=== PATIENT | female | born 1955 | race Caucasian/White ===

== ENCOUNTER 2021-12-29 22:30 | Emergency (ER) | payer MEDICARE, OTHER, SELFPAY ==
[2021-12-29 22:32] VITALS: BP 143/83; PULSE 79; RESP 14; TEMP 37; O2SAT 98; BMI 25.7
--- NOTE | 2021-12-29 22:36 | RAD_ITS ---
STUDY: X-RAY - RIGHT WRIST REASON FOR EXAM: Female, 66 years old. pain TECHNIQUE: 3 view(s) of the wrist were obtained. COMPARISON: None. FINDINGS: Normal visualized distal radius and ulna. Normal radiocarpal articulation. Normal distal radioulnar articulation. Mild sclerosis of the lunate, degenerative appearing. Normal carpal articulations. There is degenerative arthrosis of the carpometacarpal articulation of the thumb. Normal second through fifth carpometacarpal articulations. Normal visualized metacarpal bones. The soft tissue structures are unremarkable. RAD/Wrist min 3 Views IMPRESSION: No demonstrated fracture or malalignment. Electronically Signed: Luis Antonio Dominguez MD (Brooks) at 22:53 EDT Reading Location ID and State: [facility] / [place] , Service support ,
--- NOTE | 2021-12-29 22:39 | EDS_ITS ---
HPI History of Present Illness HPI Narrative: Patient presents with right wrist injury that occurred after a fall tonight. Patient states she slipped and fell and landed on her right wrist. Patient states this occurred approximate 2 hours prior to arrival. Patient describes her pain as dull and aching. Patient states it is worse with movement. Patient denies any paresthesias or weakness. Patient denies any head injury or loss of consciousness. Patient denies any other injuries. Chief Complaint: Upper Extremity Injury Informant: patient Onset/Context/Timing Onset: Today and Hours (2) Timing: Continuous Quality of Pain: Dull and Aching Location: Right wrist Worsened by: Movement Relieved by: Rest Associated Symptoms Associated Symptoms: Negative for Parasthesia, Weakness and Loss of Funtion PFSH PFSH Medical History no medical history Home Medications alendronate 70 mg PO DAILY 12/29/21 [History Last Taken Unknown] Allergy/AdvReac Type Severity Reaction Status Date / Time No Known Allergies Allergy Verified 12/29/21 22:31 Surgical History (Updated 12/29/21 @ 23:[address] William Ayala DO) Hx of tonsillectomy Social History Smoking Status: Never smoker ROS ROS ED Constitutional Constitutional ED: Denies chills or fever(s) Eyes Eyes: Denies blurry vision or change in vision ENT ENT ED: Denies rhinorrhea or sore throat Cardiovascular Cardiovascular: Denies chest pain or palpitations Respiratory/Chest Respiratory/Chest: Denies cough or dyspnea Gastrointestinal Gastrointestinal: Denies nausea or vomiting Genitourinary Genitourinary ED: Denies dysuria or hematuria Musculoskeletal Musculoskeletal: Denies back pain or neck pain Integumentary Denies abscess or rash Neurologic Neurologic: Denies headache(s) or weakness Allergic/Immunologic Allergic/Immunologic ED: Denies mouth swelling or urticaria EXAM Physical Exam Const Vital Signs: 12/29/21 22:32 Temperature 98.6 F Temperature Source Temporal Pulse Rate 79 Respiratory Rate 14 Blood Pressure 143/83 H Blood Pressure Mean 103 Pulse Ox 98 Oxygen Delivery Method Room Air Positive well nourished and well developed General Appearance ED: well developed and NAD HEENT Reports moist mucous membranes Neck full ROM and supple Extremity Extremity Narrative: There is tenderness over the right distal radius. It is mainly on the volar aspect. There is no tenderness over the anatomic snuffbox. Range of motion was limited in all motions of the right wrist secondary to pain. There is no obvious deformity noted. There is some mild edema. There is no ecchymosis. Radial pulses are equal bilaterally. Sensation was intact to light touch in the radial, median, and ulnar areas. Strength is 5/5 in the radial, median, and ulnar areas. Capillary refill was less than 2 seconds in all digits. Neuro oriented x3, CN's II-XII intact bilaterally, moves all extremities, no focal motor deficits and no sensory deficits noted Sensorium / Orientation: alert Psych mental status grossly normal MDM MDM MDM Narrative Medical decision making narrative: X-rays of the right wrist were obtained. There are 3 views. On my interpretation, there is no acute fracture. There is no dislocation. There is no soft tissue swelling. Radiologist also interpreted the x-rays and agrees. Patient was given a Velcro wrist splint. Patient was instructed to ice and elevate the right wrist. Patient was instructed to follow-up with her primary care physician in 7 to 10 days. Patient understood and was agreeable with the plan. All questions were answered. Discharge Plan Triage Chief Complaint: Upper Extremity Injury ED Provider: William Ayala Dx/Rx/DC Orders Clinical Impression: Right wrist sprain Instructions: ED Wrist Sprain Prescriptions: No Action alendronate 70 mg tablet 70 mg PO DAILY RF: 0 Primary Care Provider: Huma Trinh NP Referrals: Huma Trinh NP, [facility]NAL [employer] [Primary Care Provider] - 5-7 Days Disposition Disposition: Home, Self Care
[2021-12-29] MEDS: HYDROcodone Bitartrate/Apap 5/325 Tablet PO (23:15)
== END 2021-12-29 23:18 | disposition home or self-care (01) ==
PROVIDERS: Emergency Provider Emergency Medicine; PCP Clinical Nurse Specialist; Visit Provider Emergency Medicine
DX: S63.91XA Sprain of unspecified part of right wrist and hand, initial encounter (principal); W01.0XXA Fall on same level from slipping, tripping and stumbling without subsequent striking against object, initial encounter
CPT/HCPCS: 73110; 99283

== ENCOUNTER 2025-01-04 09:15 | Emergency (ER) | payer MEDICARE, OTHER, SELFPAY ==
[2025-01-04 09:16] VITALS: BP 130/101; PULSE 69; RESP 16; TEMP 36.8; O2SAT 100; BMI 27.0
--- NOTE | 2025-01-04 09:53 | CT_ITS ---
EXAM: CT Abdomen and Pelvis With Intravenous Contrast CLINICAL INDICATION: LEFT LOWER QUADRANT ABDOMINAL PAIN TECHNIQUE: Axial computed tomography images of the abdomen and pelvis with intravenous contrast. This CT exam was performed using one or more of the following dose reduction techniques: automated exposure control, adjustment of the mA and/or kV according to patient size, and/or use of iterative reconstruction technique. COMPARISON: No relevant prior studies available. FINDINGS: LUNG BASES: Unremarkable. No mass. No consolidation. MEDIASTINUM: Small esophageal hiatal hernia. ABDOMEN: LIVER: Fatty infiltration of the liver. Hepatic cysts. GALLBLADDER AND BILE DUCTS: Unremarkable. No calcified stones. No ductal dilation. PANCREAS: Unremarkable. No mass. No ductal dilation. SPLEEN: Unremarkable. No splenomegaly. ADRENALS: Unremarkable. No mass. KIDNEYS AND URETERS: Left nephrolithiasis without hydronephrosis. Left renal cysts. STOMACH AND BOWEL: Fecal retention in the colon consistent with constipation. Colonic diverticulosis without acute diverticulitis. No obstruction. PELVIS: APPENDIX: No findings to suggest acute appendicitis. BLADDER: Unremarkable. No mass. REPRODUCTIVE: Unremarkable as visualized. ABDOMEN and PELVIS: INTRAPERITONEAL SPACE: Unremarkable. No free air. No significant fluid collection. BONES/JOINTS: No acute fracture. No dislocation. SOFT TISSUES: Umbilical hernia containing fat. VASCULATURE: Unremarkable. No abdominal aortic aneurysm. LYMPH NODES: Unremarkable. No enlarged lymph nodes. CT/Abdomen/Pelvis W IV Cont ONLY IMPRESSION: 1. Small esophageal hiatal hernia. 2. Fecal retention in the colon consistent with constipation. 3. Umbilical hernia containing fat. 4. Left nephrolithiasis without hydronephrosis. 5. Left renal cysts. 6. Colonic diverticulosis without acute diverticulitis. Reading Location: [id number]
--- NOTE | 2025-01-04 09:54 | ED.VIS.GI ---
HPI HPI - GI History of Present Illness Chief Complaint: Abd Pain Narrative Narrative: 69-year-old female who denies significant past medical history presents with left lower quadrant abdominal pain which began at around 2:00 this morning, approximately 8 hours ago. She states she got up in the middle the night and had dull, aching pain more the left lower quadrant. She felt like she had to have a bowel movement. She went back to bed, and now the pain has worsened and is in the left upper quadrant as well. She was able to have a bowel movement today which was normal. She denies any dysuria or hematuria, no fevers or chills but she is nauseated but has not vomited. No exacerbating or alleviating factors. At times the pain did become sharp and stabbing. It is concentrated mainly in the left lower quadrant however. She denies any previous abdominal surgeries. PFSH PFSH Home Medications ?Medication ?Instructions ?Recorded ?Last Taken ?Type calcium carbonate 260 mg PO DAILY 01/04/25 01/03/25 History cholecalciferol (vitamin D3) 1 cap PO QODAY 01/04/25 01/03/25 History multivitamin (Daily Multi-Vitamin 1 tab PO DAILY 01/04/25 01/03/25 History tablet) Allergy/AdvReac Type Severity Reaction Status Date / Time No Known Allergies Allergy Verified 12/29/21 22:31 Surgical History Hx of tonsillectomy Social History Smoking Status: Never smoker ROS ROS ED ROS Narrative Review of systems positive for left lower quadrant and now left upper quadrant abdominal pain. Described as dull and achy and sometimes sharp and stabbing. No dysuria or hematuria. No fevers or chills. No diarrhea or problems with bowel movements. Positive nausea but no vomiting. Denies other symptoms. No exacerbating or alleviating factors. EXAM Physical Exam Narrative Exam Narrative: Afebrile. Vital signs noted. Nontoxic-appearing. Cardiovascular examination feels a regular rate and rhythm, lungs are clear to auscultation bilaterally. The abdomen is soft with mild tenderness palpation in the left lower quadrant greater than the left upper quadrant. No rebound or guarding. Positive bowel sounds. No tenderness in epigastrium. Neurological examination nonfocal, nonlateralizing. Awake, alert, interactive. Const Vital Signs: 01/04/25 09:16 Temperature 98.3 F Temperature Source Oral Pulse Rate 69 Respiratory Rate 16 Blood Pressure 130/101 H Blood Pressure Mean 110 Pulse Ox 100 MDM MDM MDM Narrative Medical decision making narrative: The differential diagnosis includes but not limited to diverticulitis versus colitis versus pyelonephritis versus ureterolithiasis. Patient administered morphine and ondansetron and normal saline for analgesia. Comprehensive workup was pursued. I do feel CT imaging is indicated. I have a lower suspicion for obstruction as the patient has not had prior abdominal surgeries. I reviewed her laboratory work and she has normal white count of 5.8 with hemoglobin normal at 13.0, platelet count normal at 238. Electrolyte panel is significant for BUN of 22 which I think is nonspecific and creatinine normal at 1.12. Glucose elevated 138 with a normal anion gap of 12. Urinalysis is negative for infection with negative nitrites and 0-5 WBCs. I do not feel antibiotics are indicated. I reviewed the radiology report of the CT of the abdomen pelvis with IV contrast and there is no acute process. She has diverticulosis without evidence of diverticulitis. Upon repeat examination at approximately 1300, she is resting comfortably and her pain is improved. Her abdomen remains soft and is nontender. While I feel she probably has more of a nonspecific abdominal pain from this morning I feel she can be discharged safely home with follow-up. I offered her antinausea medication but she declined. Return instructions to the emergency department were reviewed. Patient agreeable with discharge. Disposition is discharged home in stable condition. History & Record Review Discussion w/independent historian: Patient Additional record(s) reviewed:: Prior ED visit (Noncontributory to current chief complaint, was seen for wrist injury on 1 other visit) Lab Data Attestation: I reviewed the patient's lab results. Labs: Laboratory Results - last 24 hr 01/04/25 01/04/25 09:34 11:35 WBC 5.8 RBC 4.26 Hgb 13.0 Hct 38.0 MCV 89.2 MCH 30.5 MCHC 34.2 RDW Std Deviation 42.4 RDW Coeff of Veronica 13.0 Plt Count 238 MPV 11.2 Immature Gran % (Auto) 0.300 Neut % (Auto) 60.7 Lymph % (Auto) 24.4 [place] % (Auto) 9.3 Eos % (Auto) 4.3 Baso % (Auto) 1.0 Absolute Neuts (auto) 3.5 Absolute Lymphs (auto) 1.42 Nucleated RBC % 0 Sodium 141 Potassium 4.0 Chloride 106 Carbon Dioxide 23.4 Anion Gap 12 BUN 22 H Creatinine 1.12 Estim Creat Clear Calc 43.00 L Est GFR (MDRD) Non-Af 53 L BUN/Creatinine Ratio 20.0 Glucose 138 H Calcium 9.8 Total Bilirubin 0.27 AST 26 ALT 18 Alkaline Phosphatase 52 Total Protein 7.0 Albumin 4.2 Globulin 2.8 Albumin/Globulin Ratio 1.5 Urine Color Straw Urine Clarity Clear Urine pH 7.0 Ur Specific [place] 1.005 Urine Protein Negative Urine Glucose (UA) Normal Urine Ketones Negative Urine Occult Blood 50 H Urine Nitrite Negative Urine Bilirubin Negative Urine Urobilinogen Normal Ur Leukocyte Esterase Negative Urine RBC 0-5 SEEN Urine WBC 0-5 SEEN Ur Squamous Epith Cells 0 SEEN Urine Bacteria 0 SEEN Urine Mucus 0 SEEN Radiography Diagnostic Testing: Clinical Impression(s) from Imaging Studies Abdomen/Pelvis CT 01/04/25 09:53 IMPRESSION: 1. Small esophageal hiatal hernia. 2. Fecal retention in the colon consistent with constipation. 3. Umbilical hernia containing fat. 4. Left nephrolithiasis without hydronephrosis. 5. Left renal cysts. 6. Colonic diverticulosis without acute diverticulitis. [facility] Chief Complaint: Abd Pain ED Provider: James Her Dx/Rx/DC Orders Clinical Impression: Abdominal pain, Diverticulosis Instructions: ED Abdominal Pain Unkn Cause Fem Prescriptions: No Action multivitamin [Daily Multi-Vitamin] Tablet 1 tab PO DAILY calcium carbonate 260 mg calcium (650 mg) tablet,chewable 260 mg PO DAILY cholecalciferol (vitamin D3) 1 cap PO QODAY Primary Care Provider: Yoselin Erwin Referrals: Yoselin Erwin MD [Primary Care Provider] - Activity Restrictions/Additional Instructions: Return to the emergency department with fever, increased pain, new or worsening symptoms. Follow-up with your primary care provider otherwise. Print Language: Maori Disposition Disposition: Home, Self Care
[2025-01-04] MEDS: Morphine 4 MG/ML Syringe IV (10:01)
[2025-01-04] MEDS: 0.9% Normal Saline (1000mL) 1,000 ML 999 ML IV (10:01)
[2025-01-04] MEDS: Ondansetron 4 MG/2 ML Vial IV (10:01)
[2025-01-04 10:02] LABS: Absolute Lymphocyte Count 1.42 X10^3/uL (0.83-4.51); Absolute Neutrophil Count 3.5 X10^3/uL (2.0-7.7); Basophil# 0.06 X10^3/uL; Eosinophil# 0.25 X10^3/uL; Eosinophils% 4.3 % (0-5); Lymphocyte # 1.42 X10^3/ul (0.83-4.51); Lymphocyte % 24.4 % (19-41); Mean Corp Hgb Conc 34.2 g/dL (32-36); Mean Corpuscular Hgb 30.5 pg (27.0-32.0); Mean Corpuscular Volume 89.2 fL (81-99); Mean Platelet Vol. 11.2 fl (6.2-12.0); Monocyte# 0.54 X10^3/uL; Monocyte% 9.3 % (0-10); NRBC Flagged by Analyzer 0 % (0-5); Neutrophil # 3.52 X10^3/uL (2.7-7.7); Neutrophil % 60.7 % (47-70); Platelet Count 238 K/mm3 (150-450); RBC Distribution Width SD 42.4 fl (35.1-43.9); Red Blood Count 4.26 M/mm3 (4.2-5.4); White Blood Count 5.8 K/mm3 (4.4-11.0)
[2025-01-04 10:23] LABS: ALB/GLOB Ratio 1.5 RATIO (0.9-2.4); AST(SGOT) 26 U/L (<=31); Alanine Aminotransfer ALT/SGPT 18 U/L (<=34); Albumin, Serum 4.2 g/dL (3.4-4.8); Alkaline Phosphatase 52 U/L (35-104); Anion Gap 12 (5-15); BUN 22 mg/dL (4-19); Calcium,Total 9.8 mg/dL (7.6-11.0); Carbon Dioxide 23.4 mmol/L (21.0-32.0); Chloride 106 mmol/L (98-108); Creatinine, Serum 1.12 mg/dL (0.70-1.20); EST Glomerular Filtration Rate 53 (>60); Globulin 2.8 g/dL (2.2-4.2); Glucose 138 mg/dL (70-99); Sodium Level 141 mmol/L (133-145); Total Bilirubin 0.27 mg/dL (0.00-1.30)
[2025-01-04 11:15] VITALS: BP 120/78; PULSE 82; RESP 18; O2SAT 98
[2025-01-04 11:42] LABS: Bacteria 0 SEEN /hpf (None Seen); Mucous, Urine 0 SEEN /hpf (<or=2+); Squamous Epithelial Cells - UA 0 SEEN /hpf (5-10)
[2025-01-04 11:49] LABS: Color, Urine Straw (Yellow); Glucose, Dipstick Normal (Normal); Ketone-Dipstick Negative (Negative); Leukocyte Esterase-Dipstick Negative /ul (Negative); Nitrite-Dipstick Negative (Negative); Occult Blood-Urine 50 /ul (Negative); Protein-Dipstick Negative (Negative); Specific Gravity, Urine 1.005 (1.002-1.030); Urine Bilirubin Dipstick Negative (Negative); Urine Clarity Clear (Clear); Urine Urobilinogen Normal (Normal)
[2025-01-04 12:29] LABS: Red Blood Cells-Urine 0-5 SEEN /hpf (0-5); White Blood Cells 0-5 SEEN /hpf (0-5)
[2025-01-04 13:00] VITALS: BP 128/86; PULSE 85; RESP 18; O2SAT 99
[2025-01-04 13:16] VITALS: BP 128/86; PULSE 85; RESP 18; TEMP 36.8; O2SAT 99
== END 2025-01-04 13:17 | disposition home or self-care (01) ==
PROVIDERS: Emergency Provider Emergency Medicine; PCP Internal Medicine; Visit Provider Emergency Medicine
DX: R10.32 Left lower quadrant pain (principal); K57.30 Diverticulosis of large intestine without perforation or abscess without bleeding; R10.12 Left upper quadrant pain
CPT/HCPCS: 74177; 80053; 81001; 85025; 96361; 96374; 96375; 99283; Q9967; A4216; J2405

== ENCOUNTER 2025-01-05 08:38 | Day surgery (SDC) | payer MEDICARE, OTHER, SELFPAY ==
[2025-01-05] VITALS (10 sets, daily range): BP systolic 138–163; BP diastolic 79–106; PULSE 72–111; RESP 14–18; TEMP 36.1–36.5; O2SAT 93–100; BMI 27.1
--- NOTE | 2025-01-05 08:53 | CT_ITS ---
EXAM: CT Abdomen and Pelvis With Intravenous Contrast CLINICAL INDICATION: ABDOMINAL PAIN TECHNIQUE: Axial computed tomography images of the abdomen and pelvis with intravenous contrast. This CT exam was performed using one or more of the following dose reduction techniques: automated exposure control, adjustment of the mA and/or kV according to patient size, and/or use of iterative reconstruction technique. COMPARISON: CT Abdomen Pelvis dated 01/04/2025 FINDINGS: LUNG BASES: Unremarkable. No mass. No consolidation. MEDIASTINUM: Small esophageal hiatal hernia. ABDOMEN: LIVER: Hepatomegaly with fatty infiltration. GALLBLADDER AND BILE DUCTS: Unremarkable. No calcified stones. No ductal dilation. PANCREAS: Unremarkable. No mass. No ductal dilation. SPLEEN: Unremarkable. No splenomegaly. ADRENALS: Unremarkable. No mass. KIDNEYS AND URETERS: 10 mm obstructing calculus of the proximal left ureter resulting in moderate hydronephrosis. This appears to progressed since the prior exam. Left renal cysts. STOMACH AND BOWEL: Fecal retention in the colon consistent with constipation. Colonic diverticulosis without acute diverticulitis. No obstruction. PELVIS: APPENDIX: No findings to suggest acute appendicitis. BLADDER: Unremarkable. No mass. REPRODUCTIVE: Unremarkable as visualized. ABDOMEN and PELVIS: INTRAPERITONEAL SPACE: Unremarkable. No free air. No significant fluid collection. BONES/JOINTS: No acute fracture. No dislocation. SOFT TISSUES: Umbilical hernia containing fat. VASCULATURE: Unremarkable. No abdominal aortic aneurysm. LYMPH NODES: Unremarkable. No enlarged lymph nodes. CT/Abdomen/Pelvis W IV Cont ONLY IMPRESSION: 1. 10 mm obstructing calculus of the proximal left ureter resulting in moderat e hydronephrosis. This appears to progressed since the prior exam. 2. Small esophageal hiatal hernia. 3. Fecal retention in the colon consistent with constipation. 4. Hepatomegaly with fatty infiltration. 5. Umbilical hernia containing fat. 6. Colonic diverticulosis without acute diverticulitis. Reading Location: [id number]
--- NOTE | 2025-01-05 08:54 | ED.VIS.GI ---
HPI HPI - GI History of Present Illness Chief Complaint: Abd Pain Detail of Chief Complaint: Abdominal pain Informant: patient Narrative Narrative: Patient presents with abdominal pain x 2 days. She states that she was seen in the emergency department yesterday and had blood work as well as urinalysis and a CAT scan that were unremarkable. She received morphine and Zofran which seemed to help her pain at that time. Patient states that she has had pain since that time and this morning has dry heaves. Pain seems to be worse mostly to the left side of the abdomen and radiating to her back. She denies blood in her stool or black tarry stool. She denies diarrhea. She denies fever. She denies urinary symptoms. PFSH PFSH Home Medications ?Medication ?Instructions ?Recorded ?Last Taken ?Type calcium carbonate 260 mg PO DAILY 01/04/25 01/03/25 History cholecalciferol (vitamin D3) 1 cap PO QODAY 01/04/25 01/03/25 History multivitamin (Daily Multi-Vitamin 1 tab PO DAILY 01/04/25 01/03/25 History tablet) Allergy/AdvReac Type Severity Reaction Status Date / Time No Known Allergies Allergy Verified 12/29/21 22:31 Surgical History Hx of tonsillectomy Social History Smoking Status: Never smoker ROS ROS ED Review of Systems ROS Unobtainable: other Constitutional Constitutional ED: Reports lethargy; Denies chills, fever(s), sweats or weight loss Eyes Eyes: Denies blurry vision, change in vision or diplopia ENT ENT ED: Denies rhinorrhea or sore throat Cardiovascular Cardiovascular: Denies chest pain, orthopnea or racing heartbeat Respiratory/Chest Respiratory/Chest: Denies cough, dyspnea, dyspnea on exertion, orthopnea or sputum Gastrointestinal Gastrointestinal: Reports abdominal pain, nausea and vomiting; Denies diarrhea Genitourinary Genitourinary ED: Denies dysuria, hematuria or urinary frequency Musculoskeletal Musculoskeletal: Denies arthralgias, back pain, myalgias or neck pain Integumentary Denies abscess, Abrasions or rash Neurologic Neurologic: Denies headache(s) or weakness Psychiatric Psychiatric: Denies anxiety, depression or suicidal thoughts Endocrine Endocrinology: Denies polydipsia, polyphagia or polyuria Hematologic/Lymphatic Hematologic/Lymphatic: Denies easy bleeding, easy bruising or lymphadenopathy Allergic/Immunologic Allergic/Immunologic ED: Denies mouth swelling, tongue swelling or urticaria EXAM Physical Exam Const Vital Signs: 01/05/25 08:39 01/05/25 11:21 Temperature 96.9 F L Temperature Source Temporal Pulse Rate 111 H 78 Respiratory Rate 18 18 Blood Pressure 161/83 H Blood Pressure Mean 109 Pulse Ox 95 98 Oxygen Delivery Method Room Air Positive well nourished and well developed General Appearance ED: well developed and NAD HEENT Reports TM's clear and moist mucous membranes normocephalic and atraumatic; Negative for trauma or tenderness Tympanic Membrane ED: Yes TM's clear Eyes PERRL and EOMs intact bilaterally General Eye ED: Negative for pale conjunctiva or scleral icterus Neck no lymphadenopathy, supple and no JVD General: Negative for tenderness Chest Wall inspection of chest normal and palpation of chest normal Chest: Negative for tenderness Resp normal respiratory effort and clear to auscultation bilaterally Effort and Inspection: Negative for respiratory distress or pain with movement Auscultation: Negative for rhonchi, wheezes or diminished lung sounds Cardio regular rate, regular rhythm, S1 normal heart sound, S2 normal heart sound and no murmurs Peripheral Pulses: pulses 2+ throughout GI normal to inspection, nondistended, normoactive bowel sounds, soft to palpation, non-distended and no masses GI Narrative: Tenderness palpation over the epigastric region as well as the left upper quadrant left lower quadrant with some guarding. There is no rebound, rigidity, or peritoneal signs. No mass palpated. Back/Spine no CVA tenderness and no thoracic nor lumbar tenderness Extremity normal to inspection General Extremety ED: Negative for edema General Extremity: Negative for edema Neuro oriented x3, CN's II-XII intact bilaterally, no sensory deficits noted and gait normal Sensorium / Orientation: awake, alert, oriented to person, oriented to place and oriented to time Motor Exam: strength 5/5 throughout and strength abnormal Psych mental status grossly normal Skin no rashes or lesions noted and no wounds MDM MDM MDM Narrative Medical decision making narrative: Patient with 2-day history of ongoing abdominal pain. She has been vomiting this morning. IV line established. She was medicated with morphine and Zofran show good pain relief with that. CBC with differential obtained showed a normal white count 9.7 with hemoglobin 13.3 and platelet count of 233. Chemistries unremarkable. BUN 17 and creatinine 1.49. LFTs unremarkable and lipase was normal at 56. Urinalysis showed 10-25 RBCs without signs of infection. CT scan of the abdomen pelvis with IV contrast showed a 10 mm left proximal ureter stone with hydroureter and hydronephrosis. We did not have urology on-call therefore I discussed case with general surgeon on-call who called the urologist Dr. Monge who is the doctor of record for patient's . Urologist was gracious enough to accept the case and take patient to operating room for treatment of her large proximal ureteral stone. Patient will be kept NPO. Her last meal was yesterday. Lab Data Attestation: I reviewed the patient's lab results. Labs: Laboratory Results - last 24 hr 01/05/25 01/05/25 09:10 11:00 WBC 9.7 RBC 4.43 Hgb 13.3 Hct 39.1 MCV 88.3 MCH 30.0 MCHC 34.0 RDW Std Deviation 42.5 RDW Coeff of Veronica 13.1 Plt Count 233 MPV 11.2 Immature Gran % (Auto) 0.400 Neut % (Auto) 81.0 H Lymph % (Auto) 11.8 L [place] % (Auto) 5.6 Eos % (Auto) 0.7 Baso % (Auto) 0.5 Absolute Neuts (auto) 7.9 H Absolute Lymphs (auto) 1.14 Nucleated RBC % 0 Sodium 143 Potassium 3.9 Chloride 107 Carbon Dioxide 21.3 Anion Gap 14 BUN 17 Creatinine 1.49 H Estim Creat Clear Calc 32.42 L Est GFR (MDRD) Non-Af 37 L BUN/Creatinine Ratio 11.5 Glucose 120 H Lactic Acid 2.3 H* Calcium 10.3 Total Bilirubin 0.40 AST 28 ALT 19 Alkaline Phosphatase 57 Total Protein 7.4 Albumin 4.3 Globulin 3.1 Albumin/Globulin Ratio 1.4 Lipase 56 Urine Color Yellow Urine Clarity Cloudy Urine pH 8.0 Ur Specific [place] 1.015 Urine Protein 30 H Urine Glucose (UA) Normal Urine Ketones 5 H Urine Occult Blood 50 H Urine Nitrite Negative Urine Bilirubin Negative Urine Urobilinogen Normal Ur Leukocyte Esterase Negative Urine RBC 10-25 SEEN Urine WBC 0-5 SEEN Ur Squamous Epith Cells 0-5 SEEN Amorphous Sediment 2+ PHOS Urine Bacteria 0 SEEN Urine Mucus 0 SEEN Radiography Diagnostic Testing: Clinical Impression(s) from Imaging Studies Abdomen/Pelvis CT 01/05/25 08:53 IMPRESSION: 1. 10 mm obstructing calculus of the proximal left ureter resulting in moderate hydronephrosis. This appears to progressed since the prior exam. 2. Small esophageal hiatal hernia. 3. Fecal retention in the colon consistent with constipation. 4. Hepatomegaly with fatty infiltration. 5. Umbilical hernia containing fat. 6. Colonic diverticulosis without acute diverticulitis. Reading Location: [id number] Discharge Plan Dx/Rx/DC Orders Clinical Impression: Ureterolithiasis, Flank pain, Vomiting Disposition Disposition: Acute Care [facility]
[2025-01-05] MEDS: Ondansetron 4 MG/2 ML Vial IV (09:11)
[2025-01-05] MEDS: 0.9% Normal Saline (1000mL) 1,000 ML 125 ML IV (09:11)
[2025-01-05] MEDS: Morphine 4 MG/ML Syringe IV (09:11)
[2025-01-05 09:23] LABS: Absolute Lymphocyte Count 1.14 X10^3/uL (0.83-4.51); Absolute Neutrophil Count 7.9 X10^3/uL (2.0-7.7); Basophil# 0.05 X10^3/uL; Basophil% 0.5 % (0-1); Eosinophil# 0.07 X10^3/uL; Eosinophils% 0.7 % (0-5); Hematocrit 39.1 % (37-47); Hemoglobin 13.3 g/dL (12.0-15.0); Lymphocyte # 1.14 X10^3/ul (0.83-4.51); Lymphocyte % 11.8 % (19-41); Mean Corpuscular Volume 88.3 fL (81-99); Mean Platelet Vol. 11.2 fl (6.2-12.0); Monocyte# 0.54 X10^3/uL; Monocyte% 5.6 % (0-10); NRBC Flagged by Analyzer 0 % (0-5); Neutrophil # 7.85 X10^3/uL (2.7-7.7); Platelet Count 233 K/mm3 (150-450); RBC Distribution Width CV 13.1 % (11.6-14.6); RBC Distribution Width SD 42.5 fl (35.1-43.9); Red Blood Count 4.43 M/mm3 (4.2-5.4); White Blood Count 9.7 K/mm3 (4.4-11.0)
[2025-01-05 09:52] LABS: ALB/GLOB Ratio 1.4 RATIO (0.9-2.4); AST(SGOT) 28 U/L (<=31); Alanine Aminotransfer ALT/SGPT 19 U/L (<=34); Albumin, Serum 4.3 g/dL (3.4-4.8); Alkaline Phosphatase 57 U/L (35-104); Anion Gap 14 (5-15); BUN 17 mg/dL (4-19); BUN/Creat Ratio 11.5 RATIO (10-20); Calcium,Total 10.3 mg/dL (7.6-11.0); Carbon Dioxide 21.3 mmol/L (21.0-32.0); Chloride 107 mmol/L (98-108); Creatinine, Serum 1.49 mg/dL (0.70-1.20); EST Glomerular Filtration Rate 37 (>60); Estimated Creatinine Clearance 32.42 ml/min (50-250); Globulin 3.1 g/dL (2.2-4.2); Glucose 120 mg/dL (70-99); Lipase 56 U/L (13-75); Potassium 3.9 mmol/L (3.3-5.1); Protein, Total 7.4 g/dL (5.9-8.4); Sodium Level 143 mmol/L (133-145)
[2025-01-05 09:57] LABS: Lactic Acid 2.3 mmol/L (0.0-2.0)
[2025-01-05 11:10] LABS: Bacteria 0 SEEN /hpf (None Seen); Mucous, Urine 0 SEEN /hpf (<or=2+)
[2025-01-05 11:20] LABS: Color, Urine Yellow (Yellow); Glucose, Dipstick Normal (Normal); Ketone-Dipstick 5 mg/dl (Negative); Leukocyte Esterase-Dipstick Negative /ul (Negative); Nitrite-Dipstick Negative (Negative); Occult Blood-Urine 50 /ul (Negative); Protein-Dipstick 30 mg/dl (Negative); Specific Gravity, Urine 1.015 (1.002-1.030); Urine Bilirubin Dipstick Negative (Negative); Urine Clarity Cloudy (Clear); Urine Urobilinogen Normal (Normal)
[2025-01-05 11:42] LABS: Red Blood Cells-Urine 10-25 SEEN /hpf (0-5); White Blood Cells 0-5 SEEN /hpf (0-5)
[2025-01-05 11:43] LABS: Amorphous Sediment 2+ PHOS; Squamous Epithelial Cells - UA 0-5 SEEN /hpf (5-10)
--- NOTE | 2025-01-05 12:18 | PCM.CONS.U ---
Assessment & Plan Assessment/Plan (1) Abdominal pain: (2) Left renal stone: PLAN: npo, surgery to to laser stone and stent. team called made aware anesthesia called as well HPI Consult Data Date of Consult: 01/05/25 HPI Narrative Reason for Consultation: stone left ureter HPI Narrative: MICHAEL SINCLAIR, is a 69 F who presents w stone in the left proximsl ureter , nausea and vomitin, plan to take to surgery today to laser stone and stent. pt npo. PFSH Home Medications ?Medication ?Instructions ?Recorded ?Last Taken ?Type calcium carbonate 260 mg PO DAILY 01/04/25 01/03/25 History cholecalciferol (vitamin D3) 1 cap PO QODAY 01/04/25 01/03/25 History multivitamin (Daily Multi-Vitamin 1 tab PO DAILY 01/04/25 01/03/25 History tablet) Allergy/AdvReac Type Severity Reaction Status Date / Time No Known Allergies Allergy Verified 12/29/21 22:31 Surgical History Hx of tonsillectomy Social History Smoking Status: Never smoker ROS Constitutional Constitutional: Denies chills, fever(s) or malaise Eyes Eyes: Denies blurry vision or change in vision ENT HEENT: Reports none Cardiovascular Cardiovascular: Denies chest pain or palpitations Respiratory/Chest Respiratory/Chest: Denies cough or shortness of breath with exertion Gastrointestinal Gastrointestinal: Denies abdominal pain, constipation or diarrhea Musculoskeletal Musculoskeletal: Denies back pain, joint stiffness or joint swelling Integumentary Integumentary: Denies dry skin, jaundice, lesions or rash Neurologic Neurologic: Denies confusion, syncope or weakness Psychiatric Psychiatric: Reports none; Denies anxiety or depression Endocrine Endocrinology: Denies excessive sweating, fatigue or flushing Hematologic/Lymphatic Hematologic/Lymphatic: Denies anemia, easy bleeding or easy bruising Lab / Micro Data 01/05/25 09:10 01/05/25 09:10 Labs: Laboratory Results - last 24 hr 01/05/25 09:10: WBC 9.7, RBC 4.43, Hgb 13.3, Hct 39.1, MCV 88.3, MCH 30.0, MCHC 34.0, RDW Std Deviation 42.5, RDW Coeff of Veronica 13.1, Plt Count 233, MPV 11.2, Immature Gran % (Auto) 0.400, Neut % (Auto) 81.0 H, Lymph % (Auto) 11.8 L, [place] % (Auto) 5.6, Eos % (Auto) 0.7, Baso % (Auto) 0.5, Absolute Neuts (auto) 7.9 H, Absolute Lymphs (auto) 1.14, Nucleated RBC % 0, Sodium 143, Potassium 3.9, Chloride 107, Carbon Dioxide 21.3, Anion Gap 14, BUN 17, Creatinine 1.49 H, Estim Creat Clear Calc 32.42 L, Est GFR (MDRD) Non-Af 37 L, BUN/Creatinine Ratio 11.5, Glucose 120 H, Lactic Acid 2.3 H*, Calcium 10.3, Total Bilirubin 0.40, AST 28, ALT 19, Alkaline Phosphatase 57, Total Protein 7.4, Albumin 4.3, Globulin 3.1, Albumin/Globulin Ratio 1.4, Lipase 56 01/05/25 11:00: Urine Color Yellow, Urine Clarity Cloudy, Urine pH 8.0, Ur Specific [place] 1.015, Urine Protein 30 H, Urine Glucose (UA) Normal, Urine Ketones 5 H, Urine Occult Blood 50 H, Urine Nitrite Negative, Urine Bilirubin Negative, Urine Urobilinogen Normal, Ur Leukocyte Esterase Negative, Urine RBC 10-25 SEEN, Urine WBC 0-5 SEEN, Ur Squamous Epith Cells 0-5 SEEN, Amorphous Sediment 2+ PHOS, Urine Bacteria 0 SEEN, Urine Mucus 0 SEEN Imaging Radiology Impression Abdomen/Pelvis CT 01/05/25 08:53 IMPRESSION: 1. 10 mm obstructing calculus of the proximal left ureter resulting in moderate hydronephrosis. This appears to progressed since the prior exam. 2. Small esophageal hiatal hernia. 3. Fecal retention in the colon consistent with constipation. 4. Hepatomegaly with fatty infiltration. 5. Umbilical hernia containing fat. 6. Colonic diverticulosis without acute diverticulitis. Reading Location: [facility]
[2025-01-05 13:19] LABS: Reflex Lactate? Y
--- NOTE | 2025-01-05 13:30 | PRE.ANES_ITS ---
ASA Classification* ASA Classification ASA Classification: 2 and E Assessment & Plan Anesthesia* Anesthesia Assessment Anesthesia Assessment: Discussed sedation and/or anesthesia options, risks, benefits, and alternatives with patient/parents/legal guardian/POA. Questions invited. The patient/parents/legal guardian/POA seems to understand and agrees to proceed with anesthesia plan. Reviewed the physical assessment, medical history, allergy history and patient home medications list prior to surgery/procedure/anesthetic and documented any changes. Performed airway and anesthesia risk assessments. Anesthesia Type Anesthesia Type: General and MAC Anesthesia Focused Assessment* Temperature: 96.9 F Pulse Rate: 78 Blood Pressure: 161/83 Respiratory Rate: 18 Pulse Ox: 98 Airway Assessment Mouth opens: >3 cm Mallampati Score: II Focused Labs Anesthesia Preop lab: CBC WBC 9.7 K/mm3 (4.4-11.0) 01/05/25 09:10 01/05/25 RBC 4.43 M/mm3 (4.2-5.4) 01/05/25 09:10 01/05/25 Hgb 13.3 g/dL (12.0-15.0) 01/05/25 09:10 01/05/25 Hct 39.1 % (37-47) 01/05/25 09:10 01/05/25 Plt Count 233 K/mm3 (150-450) 01/05/25 09:10 01/05/25 CHEMISTRY Potassium 3.9 mmol/L (3.3-5.1) 01/05/25 09:10 01/05/25 Sodium 143 mmol/L (133-145) 01/05/25 09:10 01/05/25 BUN 17 mg/dL (4-19) 01/05/25 09:10 01/05/25 Creatinine 1.49 mg/dL (0.70-1.20) H 01/05/25 09:10 Glucose 120 mg/dL (70-99) H 01/05/25 09:10 01/05/25 COAG Pre-Assessment Diagnosis/Proposed Procedure Planned Operative Procedure(s): cysto stent laser? 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 When Was Last Pacemaker Check QUESTION #4 FULL TEXT: You/Your Family Experience fever (hyperthermia) with Anesthesia Last Oral Intake Last Oral intake: Last Oral Intake NPO since Meds taken in AM with sips of water? Meds patient instructed to take am of surgery PONV PONV - fiber optic central office installer: PONV - fiber optic central office installer Female HX of Motion Sickness HX of N/V After Surgery Non-Smoker Duration of Surgery greater than 60 minutes Number of Risk Factors PONV Score Height & Weight Height & Weight: Anesthesia: Height & Weight Height 5 ft 3 in 01/05/25 08:39 Weight: 69.672 kg 01/05/25 08:39 Body Mass Index (BMI) 27.1 01/05/25 08:39 Respiratory Assessment Respiratory Assessment - fiber optic central office installer: Respiratory Tract Infection Hx - fiber optic central office installer Hx Respiratory Tract Infection STOP Sleep Apnea STOP Sleep Apnea - fiber optic central office installer: STOP Sleep Apnea - fiber optic central office installer Hx Hypertension Hx Sleep Apnea CPAP BIPAP Do you snore loudly (louder than talking or can be heard Do you often feel tired/ fatigued/ sleepy during daytime? Has anyone observed you stop breathing during sleep? STOP Results QUESTION #5 FULL TEXT : Do you snore loudly (louder than talking or can be heard through closed doors)? Tobacco Use History Tobacco Use History - fiber optic central office installer: Tobacco Use History - fiber optic central office installer Tobacco Use Smoking Status Never smoker 01/05/25 09:12 Hx Tobacco Use Years Smoking Packs Smoked per Day Smoking Cessation Date was within the last 15 years Hx Smoking Cessation Date Hx Smoking Cessation Counseling Hematologic Medial History Hematologic Hx - fiber optic central office installer: Hematologic Medical Hx - litigation assistant Hx of Blood Transfusion Hx of Transfusion in last 3 Months Date of Last Transfusion (if within last 3 months) Ever experience any problems with transfusion(s)? Specify any problems Hx of Preganancy in last 3 Months Nurse Filling Out Transfusion & Questions: Date: Time: Patient unable to answer at this time (ie. confused, unrespo /Reproduction History /Reproductive History - fiber optic central office installer: /Reproductive Hx- fiber optic central office installer Hx Now Gestational Age (in weeks): EDC: Hx Hx Para Hx Section SAB Active Medications Active Medications: Current Medications Generic Name Dose Route Start Last Admin Trade Name Fritzq PRN Reason Stop Dose Admin Sodium Chloride 1,000 mls @ 125 mls/hr 01/05/25 08:55 01/05/25 09:11 IV 125 mls/hr .Q8H SAMIA Administration PFSH Home Medications ?Medication ?Instructions ?Recorded ?Last Taken ?Type calcium carbonate 260 mg PO DAILY 01/04/25 History cholecalciferol (vitamin D3) 1 cap PO QODAY 01/04/25 0 01/03/25 History multivitamin (Daily Multi-Vitamin 1 tab PO DAILY 01/0401/03/25 History tablet) Allergy/AdvReac Type Severity Reaction Status Date / Time No Known Allergies Allergy Verified 12/29/21 22:31 Surgical History Hx of tonsillectomy Social History Smoking Status: Never smoker Review of Systems (Anesthesia) ROS Narrative System reviewed and no additional complaints, except as documented.
--- NOTE | 2025-01-05 13:46 | HP.PCM_ITS ---
HPI - General General Date of Service: 01/05/25 HPI Narrative MICHAEL SINCLAIR, is a 69 F who presents with an obstructing stone in the left proximal ureter and severe pain nausea vomiting she comes back for the second time to the emergency room plan to take her to surgery to laser the stone and probably place a stent in the left side PFS Home Medications ?Medication ?Instructions ?Recorded ?Last Taken ?Type calcium carbonate 260 mg PO DAILY 01/04/25 History cholecalciferol (vitamin D3) 1 cap PO QODAY 01/04/25 0 01/03/25 History multivitamin (Daily Multi-Vitamin 1 tab PO DAILY 01/0401/03/25 History tablet) Allergy/AdvReac Type Severity Reaction Status Date / Time No Known Allergies Allergy Verified 12/29/21 22:31 Surgical History Hx of tonsillectomy Social History Smoking Status: Never smoker ROS Constitutional Constitutional: Denies chills, fever(s) or malaise Eyes Eyes: Denies blurry vision or change in vision ENT HEENT: Reports none Cardiovascular Cardiovascular: Denies chest pain or palpitations Respiratory/Chest Respiratory/Chest: Denies cough or shortness of breath with exertion Gastrointestinal Gastrointestinal: Denies abdominal pain, constipation or diarrhea Musculoskeletal Musculoskeletal: Denies back pain, joint stiffness or joint swelling Integumentary Integumentary: Denies dry skin, jaundice, lesions or rash Neurologic Neurologic: Denies confusion, syncope or weakness Psychiatric Psychiatric: Reports none; Denies anxiety or depression Endocrine Endocrinology: Denies excessive sweating, fatigue or flushing Hematologic/Lymphatic Hematologic/Lymphatic: Denies anemia, easy bleeding or easy bruising Vital Signs Vital Signs Vital Signs: 01/05/25 08:39 01/05/25 11:21 01/05/25 13:30 Temperature 96.9 F L 96.9 F L Temperature Source Temporal Pulse Rate 111 H 78 78 Respiratory Rate 18 Blood Pressure 161/83 H 161/83 H Blood Pressure Mean 109 Pulse Ox 95 98 98 Oxygen Delivery Method Room Air Weight Weight: 69.672 kg Body Mass Index (BMI) 27.1 Results Lab / Micro Data 01/05/25 09:10 01/05/25 09:10 Labs: Laboratory Results - last 24 hr 01/05/25 09:10: WBC 9.7, RBC 4.43, Hgb 13.3, Hct 39.1, MCV 88.3, MCH 30.0, MCHC 34.0, RDW Std Deviation 42.5, RDW Coeff of [place]onica 13.1, Plt Count 233, MPV 11.2, Immature Gran % (Auto) 0.400, Neut % (Auto) 81.0 H, Lymph % (Auto) 11.8 L, [place] % (Auto) 5.6, Eos % (Auto) 0.7, Baso % (Auto) 0.5, Absolute Neuts (auto) 7.9 H, Absolute Lymphs (auto) 1.14, Nucleated RBC % 0, Sodium 143, Potassium 3.9, Chloride 107, Carbon Dioxide 21.3, Anion Gap 14, BUN 17, Creatinine 1.49 H, E stim Creat Clear Calc 32.42 L, Est GFR (MDRD) Non-Af 37 L, BUN/Creatinine Ratio 11.5, Glucose 120 H, Lactic Acid 2.3 H*, Calcium 10.3, Total Bilirubin 0.40, AST 28, ALT 19, Alkaline Phosphatase 57, Total Protein 7.4, Albumin 4.3, Globulin 3.1, Albumin/Globulin Ratio 1.4, Lipase 56 01/05/25 11:00: Urine Color Yellow, Urine Clarity Cloudy, Urine pH 8.0, Ur Specific [place] 1.015, Urine Protein 30 H, Urine Glucose (UA) Normal, Urine Ketones 5 H, Urine Occult Blood 50 H, Urine Nitrite Negative, Urine Bilirubin Negative, Urine Urobilinogen Normal, Ur Leukocyte Esterase Negative, Urine RBC 10-25 SEEN, Urine WBC 0-5 SEEN, Ur Squamous Epith Cells 0-5 SEEN, Amorphous Sediment 2+ PHOS, Urine Bacteria 0 SEEN, Urine Mucus 0 SEEN Imaging Radiology Impression Abdomen/Pelvis CT 01/05/25 08:53 IMPRESSION: 1. 10 mm obstructing calculus of the proximal left ureter resulting in moderate hydronephrosis. This appears to progressed since the prior exam. 2. Small esophageal hiatal hernia. 3. Fecal retention in the colon consistent with constipation. 4. Hepatomegaly with fatty infiltration. 5. Umbilical hernia containing fat. 6. Colonic diverticulosis without acute diverticulitis. Reading Location: [facility] Assessment & Plan Assessment/Plan (1) Flank pain: (2) Ureterolithiasis: PLAN: Plan to proceed with cystoscopy, left ureteroscopy laser lithotripsy of stone and stent placement. Patient understands no guarantees that we will get the stone today and she may just get a stent.
--- NOTE | 2025-01-05 13:50 | PCM.DC ---
Discharge Instructions Diet Discharge Diet: No restrictions DC O2, CPAP, BIPAP needs Home O2 Discharge instructions: No Dressing / Incision Discharge Activity: Return to Normal Activity and May Not Drive (while taking narcotic pain medications.) Dressing / Incision Call your doctor if you observe: Fever of 101 or Higher Follow Up Care Please Follow Up With: Hosea Monge MD When: Call [phone] for an appointment Test Results: Test results from this visit will be discussed in further detail at your follow-up appointment, if applicable. Discharge Plan Admission Primary Reason for Your Visit: laser stone, left Attending Provider: Hosea Monge Primary Care Provider: Yoselin Erwin Instructions Print Language: Citizen Of [place] Discharge Orders/Prescriptions Prescriptions: New ibuprofen 600 mg tablet 600 mg PO Q6H PRN (Reason: pain) Qty: 20 0RF acetaminophen [Tylenol Extra Strength] 500 mg tablet 500 mg PO Q4H PRN (Reason: pain) Qty: 20 0RF phenazopyridine [Pyridium] 100 mg tablet 100 mg PO TID Qty: 20 0RF ciprofloxacin HCl [Cipro] 500 mg tablet 500 mg PO BID Qty: 6 0RF Continued multivitamin [Daily Multi-Vitamin] Tablet 1 tab PO DAILY calcium carbonate 260 mg calcium (650 mg) tablet,chewable 260 mg PO DAILY cholecalciferol (vitamin D3) 1 cap PO QODAY Patient Comments: PT DOESNT KNOW STRENGTH Referrals / Follow Up: Hosea Monge MD [Med Staff - Active Staff] - Yoselin Erwin MD [Primary Care Provider] - Disposition Disposition (needs filled in before D/C Order can be placed): Home, Self Care
--- NOTE | 2025-01-05 14:43 | PCM.OPRPT ---
Operative Report (Standard) Operative Information Date of Procedure: 01/05/25 Pre-Operative Diagnosis: Obstructing left proximal ureteral calculus impacted Post-Operative Diagnosis: The same Surgery/Procedure Performed: Cystoscopy left ureteroscopy laser lithotripsy of stone and left stent placement television cable installer: No Type of Anesthesia: General RN Documented Start/Stop Times: Operation Date: 01/05/25 14:10 Case Time Anesthesia Start 01/05/25 13:49 Into Room 01/05/25 13:49 Procedure Start 01/05/25 13:59 Procedure Start Time: 13:59 Procedure Stop Time: 14:43 Select all DRAINS/GRAFTS/IMPLANTS that apply: Drains Drain details: stent 6 fr x 26 cm Estimated Blood Loss: Minimal Specimen collected: No Description of surgery: Indication 69-year-old female presents with obstructing stone in the proximal left ureter she was admitted and today reticular to ureteroscopy laser of the stone and stent placement explained to the patient no guarantees ability get the stone laser today she might just get a stent talk about the risk of bleeding and infection. Patient was taken back to the operating room after smooth induction of anesthesia she was placed in dorsolithotomy position went into the bladder with a 7 [place] flexible ureteroscope was able to identify the left ureteral orifice with assistance of a Glidewire I then cannulated the left ureteral orifice and then was able to go into the ureter atraumatically worked my way all the way up the ureter and then encountered a very large 1 cm fragment of stone stuck in a torturous proximal ureter. I then started using laser lithotripsy without 150 ?m laser fiber, energy settings was 1 J and 2 Hz, worked very slowly to release the stone from the ureter the stone was quite impacted in the ureter and had to slowly release it from the middle and then as a release the stone there was a little bit of the ureter the ended up getting laser during the procedure as the ureter was tortuous but this was only a small segment. No perforation or other injury to the ureter a lot of inflammation in the ureter where the stone was stuck. Finally the fragments broke loose and went up to the kidney and then in the kidney I finished lasering the stones settings were 0.1 J and 100 Hz and slowly trapping the stone fragments in the upper pole I lasered the stones and little tiny pieces that should turn into dust fragments to all the little pieces and the dust I did flexible ureteroscopy inspected upper pole midpole lower pole found another fragment was not sure if this was part of the original stone or second stone this was lasered completely as well. After lasering all the visible stone fragments only tiny stone dust was left in the kidney worked my way down the ureter again I could see the proximal ureter where the stone had been stuck a lot of inflammation in the ureter little bit of the wall of the ureter up and lasered and apparently but this should heal on its own so I put a wire up into the kidney and then over a wire I placed a stent it was a 6 [place] by 26 cm stent once the stent was in good position I pulled the wire and the stent coiled in the bladder I then drained the bladder patient anesthetic was being reversed and taken back to the PACU in good condition think we need to leave the stent in for probably 3 weeks to let this heal up completely and then follow-up in the office to have the stent removed and then follow-up ultrasound to make sure there is no high residual hydronephrosis. Surgical Findings: Stone impacted in the proximal left ureter lasered completely, lot of inflammation and erythema in the area of the ureter where the stone was stuck, stent placed recommend 3-week dwell time Complications Complications: No Admit VTE Documentation VTE Present on Admission: No VTE Mechan Device Prophylaxis: SCD's VTE Pharm Prophylaxis ordered?: No
--- NOTE | 2025-01-05 14:49 | PCM.POST.ANE ---
Anesthesia: Postop Eval I Current Vital Signs Temperature: 97.7 F Pulse Rate: 79 Blood Pressure: 140/82 Respiratory Rate: 16 Pulse Ox: 94 Assessment Airway patent: Yes Spontaneous unlabored respirations: Yes nausea: No Vomiting: No Anesthesia Complication: No Fluid Hydration Crystalloid volume administer (ml): 1,000 Total IV fluid infused: 1,000 Progress Note Anesthesia document: Postop Eval 1 completed: Yes
--- NOTE | 2025-01-05 14:54 | PCM.POSTANE2 ---
Anesthesia Postop Eval I Sum Postop Eval Completion status Anesthesia document: Postop Eval 1 completed: Yes Anesthesia Postop Eval I Summary Anesthesia Postop Eval I Summary: Anesthesia Postop Eval I: Assessment Summary Airway patent Yes 01/05/25 14:53 Spontaneous unlabored Yes 01/05/25 14:53 respirations Mental status nausea No 01/05/25 14:53 Vomiting No 01/05/25 14:53 Anesthesia Postop Eval I: Fluid Summary Crystalloid volume administer 1,000 01/05/25 14:53 (ml) Colloids volume administered ( ml) Blood Product volume administered (ml) Total IV fluid infused 1,000 01/05/25 14:53 Anesthesia Postop Eval I: Summary Notes Anesthesia Complication No 01/05/25 14:53 Anesthesia Complication Comment: Post-operative progress note Anesthesia: Postop Eval II Evaluation Mental status: Awake Pain Level: 0 nausea: No Vomiting: No
[2025-01-05] MEDS: Ketorolac 15 MG/ML Vial IV (14:59)
[2025-01-05] MEDS: Acetaminophen 325 MG Tablet 650 MG PO (15:48)
== END 2025-01-05 16:11 | disposition home or self-care (01) ==
LOC: ED 12:29 → SDC 12:38 → ACINP 12:40
PROVIDERS: Emergency Provider Emergency Medicine; PCP Internal Medicine; Visit Provider Urology
PROC: (CPT 50575; principal; 2025-01-05 14:00)
DX: N13.2 Hydronephrosis with renal and ureteral calculous obstruction (principal); R11.2 Nausea with vomiting, unspecified; N13.8 Other obstructive and reflux uropathy
CPT/HCPCS: 52356; 00918; 74177; 80053; 81001; 83605; 83690; 85025; 99284; Q9967; C1769; C2617; J2405